=== PATIENT | male | born 1995 | race Caucasian/White ===

== ENCOUNTER 2017-12-07 21:24 | Emergency (ER) | payer BC, OTHER ==
[2017-12-07 22:42] LABS: ABSOLUTE BASOPHILS # (AUTO) 0.1 10^3/uL (0.0-0.2); ABSOLUTE EOSINOPHILS # (AUTO) 0.2 10^3/uL (0.0-0.6); ABSOLUTE LYMPHOCYTES (AUTO) 2.9 10^3/uL (0.5-4.7); ABSOLUTE MONOCYTES (AUTO) 1.1 10^3/uL (0.1-1.4); ABSOLUTE NEUT (AUTO) 4.8 10^3/uL (1.7-8.2); BASOPHILS % (AUTO) 0.6 % (0-2); EOSINOPHILS % (AUTO) 2.2 % (0-6); HEMATOCRIT 41.7 % (37.9-51.0); LYMPHOCYTES % (AUTO) 32.2 % (13-45); MEAN CORPUSCULAR HEMOGLOBIN 28.3 pg (27.0-33.4); MEAN CORPUSCULAR HGB CONC 33.5 g/dL (32.0-36.0); MEAN CORPUSCULAR VOLUME 85 fl (80-97); MONOCYTES % (AUTO) 12.1 % (3-13); PLATELET COUNT 215 10^3/uL (150-450); RED BLOOD COUNT 4.93 10^6/uL (4.35-5.55); RED CELL DISTRIBUTION WIDTH 13.6 % (11.5-14.0); SEGMENTED NEUTROPHILS % (AUTO) 52.9 % (42-78); TOTAL CELLS COUNTED % (AUTO) 100 %
[2017-12-07 23:07] LABS: ALBUMIN 3.8 g/dL (3.7-5.6); ANION GAP 12 (5-19); BLOOD UREA NITROGEN 11 mg/dL (7-20); CARBON DIOXIDE 25 mmol/L (22-30); CHLORIDE 107 mmol/L (98-107); GLUCOSE 96 mg/dL (75-110); POTASSIUM 3.9 mmol/L (3.6-5.0); SODIUM 144.4 mmol/L (137-145); TOTAL PROTEIN 6.4 g/dL (6.3-8.2)
[2017-12-07 23:23] LABS: ALANINE AMINOTRANSFERASE 24 U/L (10-40); ALKALINE PHOSPHATASE 50 U/L (65-260); ASPARTATE AMINO TRANSFERASE 20 U/L (10-45); BILIRUBIN,DIRECT 0.3 mg/dL (0.0-0.4); BILIRUBIN,TOTAL 1.1 mg/dL (0.2-1.3); CALCIUM 9.5 mg/dL (8.4-10.2)
[2017-12-07 23:40] LABS: APPEARANCE,URINE CLEAR; BILIRUBIN,URINE NEGATIVE (NEGATIVE); COLOR,URINE STRAW; GLUCOSE, URINE NEGATIVE (NEGATIVE); KETONES,URINE NEGATIVE (NEGATIVE); LEUKOCYTE ESTERASE,URINE NEGATIVE (NEGATIVE); NITRITE,URINE NEGATIVE (NEGATIVE); PROTEIN,URINE NEGATIVE (NEGATIVE); URINE SPECIFIC GRAVITY 1.006; UROBILINOGEN,URINE NEGATIVE mg/dL (<2.0)
--- NOTE | 2017-12-08 00:05 | ER Document Report ---
ED General - General Chief Complaint: Flank Pain Stated Complaint: FLANK PAIN Time Seen by Provider: 12/07/17 22:23 Notes: Patient is a 21-year-old female without chronic medical problems, no prior surgeries who presents with acute onset of bilateral flank pain that started after he woke up from a nap. The patient describes the pain as being a throbbing, aching pain to the bilateral flanks worsened by standing and walking , improved by lying flat. He states that the pain came on suddenly and has been gradually improving since that time. He denies any history of similar symptoms in the past. He denies any known trauma to the area but does later asked me if "a massage could trigger such pain". He denies any dysuria, hematuria, nausea, vomiting, diarrhea, but does note that sometimes the pain becomes so intense that he is short of breath. He also admits to a pleuritic component of pain. - Related Data Allergies/Adverse Reactions: No Known Allergies Allergy (Verified 12/07/17 22:23) Past Medical History - General Information source: Patient - Social History Smoking Status: Never Smoker Chew tobacco use (# tins/day): No Frequency of alcohol use: Occasional Drug Abuse: None Lives with: Spouse/Significant other Family History: Reviewed & Not Pertinent Patient has suicidal ideation: No Patient has homicidal ideation: No Renal/ Medical History: Denies: Hx Peritoneal Dialysis Review of Systems - Review of Systems Notes: Constitutional: Negative for fever. HENT: Negative for sore throat. Eyes: Negative for visual changes. Cardiovascular: Negative for chest pain. Respiratory: Positive for shortness of breath. Gastrointestinal: Positive bilateral flank pain Genitourinary: Negative for dysuria. Musculoskeletal: Negative for back pain. Skin: Negative for rash. Neurological: Negative for headaches, weakness or numbness. 10 point ROS negative except as marked above and in HPI. Physical Exam - Vital signs Vitals: Temp Pulse Resp BP Pulse Ox 98.2 F 68 20 145/77 H 99 12/07/17 21:34 12/07/17 21:34 12/07/17 21:34 12/07/17 21:34 12/07/17 21:34 Interpretation: Hypertensive Notes: PHYSICAL EXAMINATION: GENERAL: Well-appearing, well-nourished and in no acute distress. HEAD: Atraumatic, normocephalic. EYES: Pupils equal round and reactive to light, extraocular movements intact, sclera anicteric, conjunctiva are normal. ENT: nares patent, oropharynx clear without exudates. Moist mucous membranes. NECK: Normal range of motion, supple without lymphadenopathy LUNGS: Breath sounds clear to auscultation bilaterally and equal. No wheezes rales or rhonchi. HEART: Regular rate and rhythm without murmurs ABDOMEN: Soft, nontender, normoactive bowel sounds. No guarding, no rebound. No masses appreciated. EXTREMITIES: Normal range of motion, no pitting or edema. No cyanosis. NEUROLOGICAL: No focal neurological deficits. Moves all extremities spontaneously and on command. PSYCH: Normal mood, normal affect. SKIN: Warm, Dry, normal turgor, no rashes or lesions noted. Course - Re-evaluation Re-evalutation: 12/08/17 00:03 Patient presents with intermittent bilateral low flank discomfort for the past 2 -3 hours that started shortly after he woke up from a nap. He has no focal abdominal tenderness on examination. No areas of rebound or guarding. No distinct CVA tenderness. He states that is worsened with standing up and walking as well as taking deep breaths. He states that sometimes the pain is so severe causing him to become short of breath but denies any distinct shortness of breath while lying in the bed. He is PERC criteria negative but I am somewhat concerned regarding his discussion of pleuritic discomfort and will therefore initiate a D-dimer test to further exclude. His laboratories otherwise completely benign. Urinalysis is clear. Very low clinical suspicion for biliary pathology, acute pancreatitis, bowel obstruction, acute appendicitis , or any alternative life any pathology. Will obtain a two-view of the abdomen to evaluate for any evidence of significant constipation as well as a renal ultrasound to evaluate the bilateral kidneys given that this is where he is complaining of the majority of his pain. As I discussed with the patient and his significant other this is a quite atypical presentation for any specific diagnosis and there is a large degree of diagnostic uncertainty at this point. 12/08/17 01:51 D-dimer is normal. X-ray of the abdomen on remarkable. Renal ultrasound likewise normal. Patient's pain has overall improved. At this point I have again emphasized the patient that the exact etiology of his symptoms is uncertain but does not appear to be from any life-threatening cause at this point. At this time will discharge with return precautions and follow-up recommendations. Verbal discharge instructions given a the bedside and opportunity for questions given. Medication warnings reviewed. Patient is in agreement with this plan and has verbalized understanding of return precautions and the need for primary care follow-up in the next 24-72 hours. - Vital Signs Vital signs: Temp Pulse Resp BP Pulse Ox 98.6 F 71 16 142/90 H 100 12/08/17 02:01 12/08/17 02:01 12/08/17 02:01 12/08/17 02:01 12/08/17 02:01 - Laboratory Result Diagrams: 12/07/17 22:31 12/07/17 22:31 Laboratory results interpreted by me: 12/07/17 22:31 Alkaline Phosphatase 50 L - Diagnostic Test Radiology reviewed: Reports reviewed Discharge - Discharge Clinical Impression: Bilateral flank pain, Shortness of breath Condition: Good Disposition: HOME, SELF-CARE Additional Instructions: You have been seen in the Emergency Department (ED) for abdominal pain. Your evaluation did not identify a clear cause of your symptoms but was generally reassuring. Please follow up with your doctor as soon as possible regarding today's emergent visit and the symptoms that are bothering you. Return to the ED if your abdominal pain worsens or fails to improve, you develop bloody vomiting, bloody diarrhea, you are unable to tolerate fluids due to vomiting, fever greater than 101, or other symptoms that concern you. Referrals: TIMOTHY RONQUILLO, [Primary Care Provider] - Follow up as needed
--- NOTE | 2017-12-08 00:40 | RADIOLOGY REPORT (SQ) ---
EXAM DESCRIPTION: XR ABDOMEN 2 VIEWS SUPINE ERECT COMPLETED DATE/TME: 12/08/2017 00:02 CLINICAL HISTORY: flank pain/abdominal cramping COMPARISON: None. FINDINGS: Upright and supine views of the abdomen. Bowel: No dilated loops of large or small bowel. Peritoneum: No free intraperitoneal air identified. Solid organs: No definite organomegaly. Calcifications: No abnormal calcifications. Bones: No acute osseous abnormalities. Other: Visualized lung bases are clear. IMPRESSION: Nonobstructive bowel gas pattern.
--- NOTE | 2017-12-08 00:56 | RADIOLOGY REPORT (SQ) ---
EXAM DESCRIPTION: US RETROPERITONEUM COMPLETED DATE/TME: 12/08/2017 00:02 CLINICAL HISTORY: 21 years, Male, flank pain COMPARISON: None. TECHNIQUE: Real time lynch scale sonographic imaging was acquired through the kidneys and urinary bladder. LIMITATIONS: None. FINDINGS: Right kidney measures 11.1 cm without hydronephrosis mass or calculus. Parenchymal echogenicity appears within normal limits. Left kidney measures 12.4 cm without hydronephrosis mass or calculus. Urinary bladder is mildly distended with bilateral ureteral jets identified. IMPRESSION: Unremarkable renal ultrasound 2010 [employer]- All Rights Reserved
[2017-12-08 02:02] VITALS: BP 142/90
== END 2017-12-08 02:23 | disposition home or self-care (01) ==
LOC: ER 21:24
DX: R10.9 Unspecified abdominal pain (principal); R06.02 Shortness of breath
CPT/HCPCS: 36415; 74019; 76770; 80053; 81001; 85025; 85379; 99284